=== PATIENT | male | born 1970 | race Caucasian/White ===

== ENCOUNTER 2016-08-15 23:17 | Emergency (ER) | payer SELFPAY ==
--- NOTE | ~2016-08-15 | ER ---
PATIENT'S NAME: CHARLES ANGEL [facility] AGE: 45 Y [address] ROOM: [place] [address] LOCATION: [facility] ADMIT DATE: 08/15/2016 ER/Outpatient Report DISCHARGE DATE: 08/16/2016 FAMILY PHYSICIAN: PHYSICIAN, NO ATTENDING PHYSICIAN: Gabriel Payne Admission date and time documented on the medical record. I saw the patient at 2330 hours. CHIEF COMPLAINT: Chest pain and shortness of breath. HISTORY OF PRESENT ILLNESS: This patient is a 45-year-old male who comes in with mid substernal anterior chest pain radiating through to his back accompanied with shortness of breath. He has little bit of nausea, but no vomiting, diarrhea, or urinary symptoms. No diaphoresis. No abdominal pain or low back pain. Pain is mid between his shoulder blades. No headache, eyes, ears, nose, throat, neck pain. No fall or trauma. No recent cough, cold, flu, fever, chills, or sweats. He has a chronic cough because of tobacco use. 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 No lightheadedness, dizziness, syncope, or near syncope. No joint or muscle swelling, redness, or pain. No skin eruptions or rash. He does have a history of essential tremor controlled with propranolol. He has had history of overdose along with anxiety and depression. HOME MEDICATIONS: See attached medication list. ALLERGIES: NONE. SOCIAL HISTORY: The patient smokes about a pack of cigarettes a day. Drinks daily. SIGNIFICANT PAST MEDICAL HISTORY: Hypertension, alcoholism, tobaccoism, essential tremor, lumbar spinal stenosis, anxiety, depression, overdose. OPERATIONS: Right knee arthroscopy, back surgery. ROS: All systems reviewed by me are negative with exception of those discussed in the history of present illness. PATIENT'S NAME: CHARLES ANGEL [facility] AGE: 45 Y [address] ROOM: [place] [address] LOCATION: [facility] ADMIT DATE: 08/15/2016 ER/Outpatient Report DISCHARGE DATE: 08/16/2016 FAMILY PHYSICIAN: PHYSICIAN, NO ATTENDING PHYSICIAN: Gabriel Payne PHYSICAL EXAMINATION: VITAL SIGNS: Temperature 96.6, tympanic; pulse 92; respirations 16; blood pressure 169/90; O2 saturation on room air is 94%. [place] Coma Scale is 15. HEENT: Head: Normocephalic. Eyes: Extraocular muscles are intact. PERRL. Ears: Clear TMs bilaterally. Nose and Throat: Clear. Mucous membranes are moist. Teeth and jaw: Intact. NECK: No nuchal rigidity. No thyromegaly or cervical adenopathy. Full range of motion. No tenderness. SPINE: Nontender. No deformity. LUNGS: Fairly good airflow. Might be a little bit decreased in distant. No rales, rhonchi, or wheezes. HEART: Regular. Pulses are palpable. The patient is not tachypneic nor tachycardic. No chest wall or ribcage pain to palpation. ABDOMEN: Soft, nondistended, nontender. Good bowel tones. No organomegaly or abnormal masses palpable. No CVA tenderness. EXTREMITIES: Without peripheral edema, cyanosis, or deformity. NEUROVASCULAR: Intact. SKIN: Clear. No skin eruptions or rash. LABORATORY DATA AND X-RAYS: Chest x-ray showed no acute infiltrate or changes. We will review x-ray with the radiologist. EKG showed sinus rhythm. No acute ST elevation, ischemic changes, or arrhythmia. D-dimer was normal at 0.26. Medical blood alcohol is elevated at 0.258. Amylase and lipase were normal. CRP was normal at less than 0.29. Thyroid studies were normal. ProBNP was 177. CMS was normal except for a low potassium of 3.2, elevated glucose 117, elevated AST of 59. Magnesium was 2.2. Initial CPK was 672, repeat CPK was 636, CK-MB was elevated at 5.4, CK-MB 2 hours later was 4.7. Troponin was normal x2, 2 hours apart. Lactate was 1.4, procalcitonin was less than 0.05. Sedimentation rate was 5. IMAGING: CT scan of the head showed no intracranial bleed, midline shift, mass effect, or skull fracture. He did have some periventricular white matter hypoattenuation. It should be noted that all these symptoms that he is having have been intermittent over the past 2-3 months. IMPRESSION: 1. Acute alcohol intoxication, known alcohol abuse. 2. Tobacco abuse. 3. Chest pain, most likely secondary to musculoskeletal etiology. 4. Hypertension. 5. Essential tremor. 6. Anxiety and depression. PATIENT'S NAME: CHARLES ANGEL [facility] AGE: 45 Y [address] ROOM: [place] [address] LOCATION: [facility] ADMIT DATE: 08/15/2016 ER/Outpatient Report DISCHARGE DATE: 08/16/2016 FAMILY PHYSICIAN: PHYSICIAN, NO ATTENDING PHYSICIAN: Gabriel Payne PLAN: The patient was dismissed home. Observation. Activity as tolerated. Continue home medications and care. Follow up with personal physician as needed. Discussion ensued with the patient concerning my findings and recommendations, he understands. MD LETA TEIXEIRA/noah /[id number] d: 08/16/16 0657 t: 08/18/16 1814, OUTPATIENT REPORT
[~2016-08-15 23:17] MED LIST: B COMPLEX1 EAC1 PO; B-COMPLEX WITH1 EACH PO; BACLOFEN10 MG PO; COZAAR100 MG PO; ELAVIL25 MG PO; ERYGEL OPHTH; FLEXERIL10 MG; FLEXERIL10 MG PO; FOLIC ACID1 MG PO; HUMIBID LA (MU600 MG PO; HYDRODIURIL25 MG PO; INDERAL LA80 MG PO; INDERAL40 MG PO; METROGEL 0.75% TOP; MYCOSTATIN CREA30 GM TOP; MYLANTA (MAG-AL30 ML PO; NEURONTIN300 MG PO; NICODERM/HABITR21 MG TRANS; NORCO 5-325 MG1 TAB PO; NORVASC5 MG PO; PEPCID20 MG PO; PERCOCET 5-3251 EACH PO; THIAMINE HCL100 MG PO; TREXAN (REVIA)50 MG PO; TYLENOL325 MG PO; ZYPREXA ORALLY10 MG PO
[2016-08-15 23:46] LABS: BASOPHIL % 0.3 %; EOSINOPHIL # 0.1 K/uL (0.0-0.5); EOSINOPHIL % 1.8 %; HEMATOCRIT 45.8 % (37.0-53.0); HEMOGLOBIN 16.3 g/dL (12.0-17.0); IMMATURE GRANULOCYTE % 0.1 %; LYMPHOCYTE # 3.2 K/uL (0.8-4.0); LYMPHOCYTE % 44.2 %; MCH 33.6 pg (27.0-34.0); MCHC 35.6 gm/dL (32.0-36.5); MCV 94.4 fl (83.0-98.0); MONOCYTE # 0.9 K/uL (0.0-1.0); MONOCYTE % 12.6 %; MPV 8.5 fl (9.4-12.4); NRBC % 0 /100WBC (0-0.00); PLATELET COUNT 225 K/uL (150-450); RBC 4.85 M/uL (4.00-6.00); RDW-CV 12.3 % (11.9-14.6); WBC 7.3 K/uL (4.0-11.0)
[2016-08-16] LABS: PROTIME 10.8 SECONDS (9.6-11.1); PTT 29 SECONDS (25-32)
[2016-08-16 00:05] LABS: ALBUMIN 3.3 gm/dL (3.5-5.0); ALK PHOS 64 IU/L (33-138); ALT 70 IU/L (12-78); ANION GAP 15.2 (10.0-19.0); AST 59 IU/L (10-40); BLOOD UREA NITROGEN 9 mg/dL (6-24); CALCIUM 8.6 mg/dL (8.5-10.5); CHLORIDE 107 mMol/L (96-110); CO2 23 mMol/L (22-32); CPK 672 IU/L (35-332); CREATININE 0.8 mg/dL (0.6-1.3); ESTIMATED GFR (MDRD EQUATION) > 60; MAGNESIUM 2.2 mg/dL (1.3-2.6); POTASSIUM 3.2 mMol/L (3.7-5.1); SODIUM 142 mMol/L (135-145); TOTAL BILIRUBIN 0.4 mg/dL (0.0-1.5); TOTAL PROTEIN 7.3 g/dL (6.0-8.4)
[2016-08-16 01:51] LABS: CPK 636 IU/L (35-332)
== END 2016-08-16 02:24 | disposition disaster alternative care site (69) ==
LOC: GMED 23:17
PROVIDERS: Emergency Medicine
DX: F10.229 Alcohol dependence with intoxication, unspecified (principal); R07.9 Chest pain, unspecified; I10 Essential (primary) hypertension; R25.1 Tremor, unspecified; F41.9 Anxiety disorder, unspecified; F32.9 Major depressive disorder, single episode, unspecified; F17.210 Nicotine dependence, cigarettes, uncomplicated
CPT/HCPCS: G0480

== ENCOUNTER 2016-09-24 19:57 | Emergency (ER) | payer SELFPAY ==
--- NOTE | ~2016-09-24 | ER ---
PATIENT'S NAME: CHARLES ANGEL [facility] AGE: 46 Y [address] ROOM: [place] [address] LOCATION: [facility] ADMIT DATE: 09/24/2016 ER/Outpatient Report DISCHARGE DATE: FAMILY PHYSICIAN: Physician, Unknown ATTENDING PHYSICIAN: Edmundo Martins Time Seen: 2005 hours. HISTORY OF PRESENT ILLNESS: The patient is a 46-year-old male who was brought in by the [employer] for medical clearance. The patient was arrested for an erratic driving. The patient on his breath analyser blew over 0.3, which requires him to come in for a medical blood alcohol. MEDICAL HISTORY: ALLERGIES: HE HAS NO MEDICINAL ALLERGIES. CURRENT MEDICATIONS: Include propranolol. PAST MEDICAL HISTORY: He has a history of hypertension and alcohol abuse. SURGERIES: Include back and neck surgery. SOCIAL HISTORY: Smoker. Daily alcohol. REVIEW OF SYSTEMS: GENERAL: The patient was cooperative. HEAD/EENT: Denied any headache, recent head injury. RESPIRATORY: No shortness of breath, cough. CARDIOVASCULAR: No chest pain. GASTROINTESTINAL: No vomiting or diarrhea. PHYSICAL EXAMINATION: VITAL SIGNS: His initial blood pressure was 172/104, his temp 99, respiratory rate 16, pulse 98, his O2 sats 92%. GENERAL: The patient is alert and oriented. Speech sounded clear. HEAD/EENT: There was no evidence of any trauma. Eyes, sclerae were injected. LUNGS: Clear. HEART: Regular rhythm. PATIENT'S NAME: CHARLES ANGEL [facility] AGE: 46 Y [address] ROOM: [place] [address] LOCATION: [facility] ADMIT DATE: 09/24/2016 ER/Outpatient Report DISCHARGE DATE: FAMILY PHYSICIAN: Physician, Unknown ATTENDING PHYSICIAN: Edmundo Martins EMERGENCY DEPARTMENT COURSE: The patient then refused further treatment and refused any blood work. ASSESSMENT: 1. ETOH intoxication. 2. Hypertension. PLAN: The patient was taken to the [facility] care home. Recommendations to watch him for delirium tremens or any concerns related to the alcohol. COLE JORDAN FOR MD MARJORIE GONZALES/noah /[id number] d: 09/24/16 2142 t: 10/30/16 0454, OUTPATIENT REPORT
== END 2016-09-24 21:14 | disposition disaster alternative care site (69) ==
LOC: GMED 19:57
DX: F10.129 Alcohol abuse with intoxication, unspecified (principal); I10 Essential (primary) hypertension; F17.210 Nicotine dependence, cigarettes, uncomplicated; Z79.899 Other long term (current) drug therapy
CPT/HCPCS: G0480

== ENCOUNTER 2016-10-30 19:50 | Emergency (ER) | payer SELFPAY ==
--- NOTE | ~2016-10-30 | ER ---
PATIENT'S NAME: CHARLES ANGEL [facility] AGE: 46 Y [address] ROOM: [place] [address] LOCATION: ED ADMIT DATE: 10/30/2016 ER/Outpatient Report DISCHARGE DATE: 10/30/2016 FAMILY PHYSICIAN: PHYSICIAN, NO ATTENDING PHYSICIAN: Mendoza Wesley Time of Arrival: 1950 hours. Time of Evaluation: 2015 hours. CHIEF COMPLAINT: This is a 46-year-old male, alcoholic, otherwise reasonably healthy, in with a complaint of right-sided back pain. HISTORY OF PRESENT ILLNESS: He denies any specific injury. He states he was rough-housing with some young relatives earlier today and he had a fairly abrupt onset of back pain. He describes a sharp stabbing pain in the right paraspinous region radiating down his leg, similar to previous episodes of pain. PAST MEDICAL HISTORY: Significant for hypertension. CURRENT MEDICATIONS: See list. REVIEW OF SYSTEMS: He denies any recent illnesses. He has had no bladder or bowel incontinence. No localized numbness or weakness. SOCIAL HISTORY: He is a 1 pack per day smoker. He drinks 6 to 20 beers daily. He has been drinking more than usual today to dull the pain. PHYSICAL EXAMINATION: GENERAL: An alert cooperative male, in no acute distress. VITAL SIGNS: Stable. SKIN: Warm and dry. Color was normal. HEAD, EARS, EYES, NOSE, AND THROAT: Normal. NECK: Nontender. CHEST: There was no evidence of chest trauma. BACK: He had a normal contour. He had moderate bilateral paraspinous tenderness with palpable spasm. NEUROLOGIC: Straight leg raise was negative. There was no localized numbness or weakness. Distal neurovascular function was intact. PATIENT'S NAME: CHARLES ANGEL [facility] AGE: 46 Y [address] ROOM: [place] [address] LOCATION: ED ADMIT DATE: 10/30/2016 ER/Outpatient Report DISCHARGE DATE: 10/30/2016 FAMILY PHYSICIAN: PHYSICIAN, KEZIA ATTENDING PHYSICIAN: Mendoza Wesley ASSESSMENT: Exacerbation of chronic back pain. PLAN: Prednisone 20 mg 3 times a day, [place] 1 every 3 to 4 hours as needed, and followup with his spine surgeon. He has seen Dr. Fernández in the past. MENDOZA WESLEY MD JDB/modl /[id number] d: 10/31/16 0456 t: 11/01/16 0444, OUTPATIENT REPORT
== END 2016-10-30 20:28 | disposition disaster alternative care site (69) ==
LOC: GMED 19:50
DX: G89.29 Other chronic pain (principal); M54.9 Dorsalgia, unspecified; I10 Essential (primary) hypertension; F17.210 Nicotine dependence, cigarettes, uncomplicated; Z79.899 Other long term (current) drug therapy

== ENCOUNTER 2016-11-24 18:44 | Emergency (ER) | payer SELFPAY ==
--- NOTE | ~2016-11-24 | ER ---
PATIENT'S NAME: CHARLES ANGEL [facility] AGE: 46 Y [address] ROOM: [place] [address] LOCATION: [facility] ADMIT DATE: 11/24/2016 ER/Outpatient Report DISCHARGE DATE: 11/24/2016 FAMILY PHYSICIAN: PHYSICIAN, NO ATTENDING PHYSICIAN: Markus Lockwood Time of patient Arrival: 1844 hours. Time of patient Evaluation: 1855 hours. CHIEF COMPLAINT: Low back pain. HISTORY OF PRESENT ILLNESS: This is a 46-year-old male, who presents to ER with low back pain. The patient states he has had chronic low back pain and did have back surgery a year and a half ago for some bulging disc. He states for approximately the last 3 or 4 weeks, he has had pain on the left side of his back that radiates down his left leg. The patient states he feels like he has some numbness along the left calf and then to his toes. 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 He states he was evaluated here in the emergency room for this episode of back pain and was told he has sciatica. He was given steroids and pain medications, which did not improve his pain at all. They did try to get into [facility] today, but they did not have any open slots. He does have an appointment to see Dr. Junior and the earliest appointment they could get was December 22, 2016. The patient denies any illnesses. No radiation of pain into his abdomen. The patient states that he would just like to know if anything has worsened in his back since his last surgery. ALLERGIES: NO KNOWN ALLERGIES. MEDICATIONS: None. PAST MEDICAL HISTORY: He has had the back surgery and a right knee surgery. SOCIAL HISTORY: He smokes 1 pack a day. He drinks alcohol. REVIEW OF SYSTEMS: All systems reviewed were negative with the exception of those discussed in the HPI. PATIENT'S NAME: CHARLES ANGEL [facility] AGE: 46 Y [address] ROOM: [place] [address] LOCATION: [facility] ADMIT DATE: 11/24/2016 ER/Outpatient Report DISCHARGE DATE: 11/24/2016 FAMILY PHYSICIAN: PHYSICIAN, NO ATTENDING PHYSICIAN: Markus Lockwood PHYSICAL EXAMINATION: VITAL SIGNS: Height 5 feet 10 inches stated, weight 83.8 kg taken, blood pressure is 154/95, pulse 95, respirations 16, temperature 99.8 degrees with the temporal scanner, saturations 93% on room air. [place] Coma Score is 15. GENERAL: Alert, calm, well-developed male, in mild distress. HEENT: Head: Normocephalic. Eyes: Pupils are equal and reactive to light. He does display moist mucous membranes. LUNGS: Clear to auscultation bilaterally. No wheezes or crackles. HEART: Regular rate and rhythm. EXTREMITIES: No clubbing or cyanosis. He does have decreased range of motion of his lower extremities secondary to low back pain. MUSCULOSKELETAL: He does have tenderness in his lumbar spine with palpation and he does have muscular tenderness on the left side of his lower back as well. He does have decreased sensation along the left calf and into the toes compared to his right. NEURO: Cranial nerves 2 through 12 grossly intact. Gait was steady with a slight shuffling gait. He is able to sit on the exam room cot in no difficulty, but states when he tries to bend forward, this causes him significant amount of pain. LABORATORY DATA: None were done. I did do an MRI of his lumbar spine. He has multilevel degenerative spondylolisthesis of the lumbar spine that has mildly progressed at L3-L4. Otherwise, there are no other significant changes from a prior imaging on 04/07/2015. He does have significant disc bulges throughout his lumbar area with some spinal canal narrowing. IMPRESSION: Acute on chronic low back pain. ASSESSMENT AND PLAN: The patient did not want to try steroids again. I am going to send him home with a muscle relaxer, Valium, to use as directed. He may use ibuprofen as needed for pain. The patient states he does not have the money to see a physical therapist. So, we did provide some information for him as far as stretching and exercises to do for his lower back. I advised him to keep his appointment with Dr. Junior in December. He should return if any symptoms worsen. The patient and the patient's significant other understand and agree with care. GUEVARA HENRY PA-C FOR MARKUS LOCKWOOD MD [facility] 46 Y [address] ROOM: [place] [address] LOCATION: [facility] ADMIT DATE: 11/24/2016 ER/Outpatient Report DISCHARGE DATE: 11/24/2016 FAMILY PHYSICIAN: KEZIA BACH ATTENDING PHYSICIAN: Markus Lockwood/noah /[id number] d: 11/25/16 0141 t: 11/29/16 1234, OUTPATIENT REPORT
== END 2016-11-24 20:48 | disposition disaster alternative care site (69) ==
LOC: GMED 18:44
DX: M54.5 Low back pain (principal); G89.29 Other chronic pain; F17.210 Nicotine dependence, cigarettes, uncomplicated; Z98.890 Other specified postprocedural states